=== PATIENT | male | born 1955 | race African-American/Black ===

== ENCOUNTER 2019-11-14 10:58 | Inpatient (IN) ==
[2019-11-14 13:30] LABS: Basophils % 0.1 % (0.0-0.8); Hemoglobin 14.5 GM/DL (14.0-18.0); Immature Granulocytes % 0.5 %; Immature Granulocytes Absolute 0.04 #; Lymphocytes # 0.7 10*3/uL (1.4-4.0); Lymphocytes % 9.7 % (21.2-54.2); Mean Corpuscular HGB Conc 32.2 GM/DL (32-36); Mean Corpuscular Volume 89.3 FL (87-102); Monocytes % 4.4 % (1.7-12.7); Neutrophils % 85.3 % (38.7-73.9); Platelet Count 181 T/CUMM (130-400); Red Blood Count 5.04 MC/CUMM (3.8-5.5); Red Cell Distribution Width 15.5 % (9.3-17.3); White Blood Count 7.7 T/CUMM (4-12)
[2019-11-14 13:45] LABS: Calcium 8.5 MG/DL (8.5-10.1); Osmolality,Calculated 298.1 MOS/KG (273-304)
[2019-11-14] MEDS ORDERED: ALPRAZolam 0.25 MG TABLET PO ONE (14:10)
[2019-11-14 14:25] LABS: Ferritin 494.8 ng/ml (26-388)
[2019-11-14] MEDS ORDERED: SODIUM CHLORIDE 0.9% 1,000 ML IV ONE (15:14)
[2019-11-14] MEDS ORDERED: ALBUTEROL 2.5 MG/3 ML NEB RESP TX PRN (15:19)
[2019-11-14] MEDS ORDERED: LEVOFLOXACIN INJ 500 MG in PREMIX 1 EACH IV ONE (15:30)
[2019-11-14] MEDS: ASPIRIN EC 81 MG TABLET PO SCH (15:49)
[2019-11-14] MEDS: INSULIN LISPRO 100 UNIT/ML SUBCUT SCH ×2 (15:49→21:15)
[2019-11-14] MEDS: amLODIPine 10 MG TABLET PO SCH (15:49)
[2019-11-14] MEDS: DEXAMETHASONE 4 MG/1 ML VIAL IV SCH ×2 (15:53→21:20)
[2019-11-14] MEDS: cefTRIAXone 1,000 MG in SYRINGE 1 EACH IV SCH (15:54)
[2019-11-14] MEDS ORDERED: NIFEdipine 10 MG CAPSULE PO PRN (16:22)
[2019-11-14] MEDS: SODIUM CHLORIDE 0.9% 1,000 ML IV SCH (17:00)
[2019-11-14 17:44] LABS: Amorphous Crystals,Urine Occasional /HPF (Few); Apearance,Urine Slightly Hazy (Clear); Bilirubin,Urine Negative (Negative); Blood, Urine Large mg/dL (Negative); Glucose,Urine (UA) Negative (Negative); Hyaline Casts,Urine 1 /LPF (0-3); Ketones,Urine 5 mg/dL (Negative); Mucus,Urine Occasional /LPF (Occasional); Nitrite,Urine Negative (Negative); Protein,Urine 100 MG/DL; RBC,Urine 1 /HPF (0-4); Squamous Epithelial Cell,Urine Occasional /HPF (0-10); Urine Color Yellow (Yellow); Urine Specific Gravity 1.012 (1.001-1.035); Urine Urobilinogen < 2.0 EU/DL (0.2-1.0)
[2019-11-14] MEDS: HEPARIN DRIP 25,000 UNITS/500 ML PREMIX IV SCH (18:35)
[2019-11-14] MEDS ORDERED: ACETAMINOPHEN 325 MG TABLET PO PRN (20:02)
[2019-11-14] MEDS: carvediloL 25 MG TABLET PO SCH (21:15)
[2019-11-14 23:10] LABS: ABG Base Excess -4.7 MMOL/L (-2.5-2.5); ABG HCO3 20.2 MMOL/L (20-26); ABG Oxygen Saturation 79.9 % (95-100); ABG PCO2 26.7 MM HG (35-48); ABG PH 7.436 (7.35-7.45); ABG PO2 48.7 MM HG (80-95); ABG TCO2 15.6 MMOL/L (23-27); Allen Test Positive; Pt O2 Delivery Device Other
[2019-11-15] MEDS: DEXAMETHASONE 4 MG/1 ML VIAL IV SCH ×4 (03:00→20:39)
[2019-11-15 03:29] LABS: Allen Test Positive; Pt O2 Delivery Device Other
[2019-11-15 03:30] LABS: ABG Base Excess -4.7 MMOL/L (-2.5-2.5); ABG HCO3 17.4 MMOL/L (20-26); ABG PCO2 25.2 MM HG (35-48); ABG PH 7.458 (7.35-7.45); ABG TCO2 18.2 MMOL/L (23-27)
[2019-11-15 04:06] LABS: Basophils % 0.1 % (0.0-0.8); Hematocrit 40.8 VOL% (42.0-52.0); Hemoglobin 13.3 GM/DL (14.0-18.0); Immature Granulocytes % 0.6 %; Immature Granulocytes Absolute 0.05 #; Lymphocytes % 12.1 % (21.2-54.2); Mean Corpuscular HGB Conc 32.6 GM/DL (32-36); Mean Corpuscular Volume 89.1 FL (87-102); Mean Platelet Volume 11.9 FL (9.6-12.0); Monocytes % 5.9 % (1.7-12.7); Neutrophils % 81.3 % (38.7-73.9); Platelet Count 180 T/CUMM (130-400); Red Blood Count 4.58 MC/CUMM (3.8-5.5); Red Cell Distribution Width 15.2 % (9.3-17.3); White Blood Count 8.2 T/CUMM (4-12)
[2019-11-15 04:15] LABS: Calcium 8.2 MG/DL (8.5-10.1); Osmolality,Calculated 298.1 MOS/KG (273-304)
[2019-11-15] MEDS: SODIUM CHLORIDE 0.9% 1,000 ML IV SCH ×3 (04:40→21:25)
[2019-11-15] MEDS: INSULIN LISPRO 100 UNIT/ML SUBCUT SCH ×4 (07:56→20:38)
[2019-11-15] MEDS: SIMVASTATIN 40 MG TABLET PO SCH (08:00)
[2019-11-15] MEDS: PANTOPRAZOLE 40 MG VIAL IV SCH (08:00)
[2019-11-15] MEDS: carvediloL 25 MG TABLET PO SCH ×2 (08:00→20:38)
[2019-11-15] MEDS: ASPIRIN EC 81 MG TABLET PO SCH (08:00)
[2019-11-15] MEDS: amLODIPine 10 MG TABLET PO SCH (08:00)
[2019-11-15] MEDS: allopurinoL 300 MG TABLET PO SCH (08:00)
[2019-11-15] MEDS: ALBUTEROL INHALER 18 GM INH SCH ×2 (08:39→11:25)
[2019-11-15] MEDS ORDERED: FUROSEMIDE 40 MG/4 ML VIAL IV ONE (08:45)
[2019-11-15] MEDS: HEPARIN DRIP 25,000 UNITS/500 ML PREMIX IV SCH ×2 (10:45→16:43)
[2019-11-15] MEDS: LEVOFLOXACIN INJ 250 MG in PREMIX 1 EACH IV SCH (15:37)
[2019-11-15] MEDS: cefTRIAXone 1,000 MG in SYRINGE 1 EACH IV SCH (15:37)
[2019-11-15] MEDS: ALPRAZolam 0.25 MG TABLET PO PRN (20:39)
[2019-11-15] MEDS: GABAPENTIN 600 MG TABLET PO PRN (20:39)
[2019-11-15] MEDS ORDERED: INSULIN GLARGINE 100 UNIT/ML SUBCUT SCH (21:00)
[2019-11-16 04:17] LABS: Allen Test Positive; Pt O2 Delivery Device Other
[2019-11-16 04:20] LABS: Hematocrit 40.2 VOL% (42.0-52.0); Hemoglobin 13.5 GM/DL (14.0-18.0); Immature Granulocytes % 0.7 %; Immature Granulocytes Absolute 0.09 #; Lymphocytes # 0.8 10*3/uL (1.4-4.0); Lymphocytes % 6.5 % (21.2-54.2); Mean Corpuscular HGB Conc 33.6 GM/DL (32-36); Mean Corpuscular Volume 87.4 FL (87-102); Mean Platelet Volume 11.8 FL (9.6-12.0); Monocytes % 4.4 % (1.7-12.7); NRBC # 0.03 10*3/uL; Neutrophils % 88.4 % (38.7-73.9); Platelet Count 185 T/CUMM (130-400); Red Cell Distribution Width 15.2 % (9.3-17.3); White Blood Count 12.5 T/CUMM (4-12)
[2019-11-16 04:23] LABS: ABG Base Excess -5.1 MMOL/L (-2.5-2.5); ABG HCO3 17.6 MMOL/L (20-26); ABG Oxygen Saturation 88.9 % (95-100); ABG PH 7.433 (7.35-7.45); ABG PO2 59.8 MM HG (80-95); ABG TCO2 18.5 MMOL/L (23-27)
[2019-11-16] MEDS: HEPARIN DRIP 25,000 UNITS/500 ML PREMIX IV SCH (04:44)
[2019-11-16] MEDS: DEXAMETHASONE 4 MG/1 ML VIAL IV SCH ×2 (04:44→12:45)
[2019-11-16 04:49] LABS: Hypochromasia 1+
[2019-11-16 04:50] LABS: Anisocytosis 1+; Burr Cells Slight
[2019-11-16 04:51] LABS: Platelet Estimate Adequate; Polychromasia Slight
[2019-11-16 04:55] LABS: Calcium 8.2 MG/DL (8.5-10.1); Osmolality,Calculated 303.2 MOS/KG (273-304)
[2019-11-16] MEDS ORDERED: PHENOL 1.4% THROAT SPRAY 177 ML BOTTLE PO PRN (07:46)
[2019-11-16] MEDS: SODIUM CHLORIDE 0.9% 1,000 ML IV SCH ×2 (08:12→17:25)
[2019-11-16] MEDS: ALBUTEROL INHALER 18 GM INH SCH ×3 (08:12→18:19)
[2019-11-16] MEDS: SIMVASTATIN 40 MG TABLET PO SCH (09:35)
[2019-11-16] MEDS: INSULIN LISPRO 100 UNIT/ML SUBCUT SCH ×4 (09:35→20:41)
[2019-11-16] MEDS: carvediloL 25 MG TABLET PO SCH ×2 (09:35→20:41)
[2019-11-16] MEDS: allopurinoL 300 MG TABLET PO SCH (09:35)
[2019-11-16] MEDS: PANTOPRAZOLE 40 MG VIAL IV SCH (09:35)
[2019-11-16] MEDS: ASPIRIN EC 81 MG TABLET PO SCH (09:35)
[2019-11-16] MEDS: amLODIPine 10 MG TABLET PO SCH (09:35)
[2019-11-16] MEDS ORDERED: INSULIN GLARGINE 100 UNIT/ML SUBCUT ONE (11:37)
[2019-11-16] MEDS: cefTRIAXone 1,000 MG in SYRINGE 1 EACH IV SCH (16:50)
[2019-11-16] MEDS: ENOXAPARIN 80 MG/0.8 ML SYRINGE SUBCUT SCH (16:50)
[2019-11-16] MEDS: LEVOFLOXACIN INJ 250 MG in PREMIX 1 EACH IV SCH (18:15)
[2019-11-16] MEDS: INSULIN GLARGINE 100 UNIT/ML SUBCUT SCH (20:41)
[2019-11-16] MEDS: GABAPENTIN 600 MG TABLET PO PRN (20:42)
[2019-11-16] MEDS: ALPRAZolam 0.25 MG TABLET PO PRN (20:42)
[2019-11-17] MEDS: ALBUTEROL INHALER 18 GM INH SCH ×4 (00:06→20:18)
[2019-11-17 05:00] LABS: Allen Test Positive; Pt O2 Delivery Device Other
[2019-11-17 05:01] LABS: ABG Base Excess -3.8 MMOL/L (-2.5-2.5); ABG HCO3 18.5 MMOL/L (20-26); ABG Oxygen Saturation 82.2 % (95-100); ABG PCO2 26.5 MM HG (35-48); ABG PH 7.461 (7.35-7.45); ABG TCO2 19.3 MMOL/L (23-27)
[2019-11-17 05:27] LABS: Basophils % 0.2 % (0.0-0.8); Hematocrit 38.3 VOL% (42.0-52.0); Hemoglobin 12.9 GM/DL (14.0-18.0); Immature Granulocytes % 1.9 %; Immature Granulocytes Absolute 0.24 #; Mean Corpuscular HGB Conc 33.7 GM/DL (32-36); Mean Corpuscular Volume 85.9 FL (87-102); Mean Platelet Volume 11.7 FL (9.6-12.0); Monocytes % 5.5 % (1.7-12.7); NRBC # 0.09 10*3/uL; Neutrophils % 84.4 % (38.7-73.9); Platelet Count 175 T/CUMM (130-400); Red Blood Count 4.46 MC/CUMM (3.8-5.5); Red Cell Distribution Width 15.1 % (9.3-17.3)
[2019-11-17 05:34] LABS: Osmolality,Calculated 299.8 MOS/KG (273-304)
[2019-11-17] MEDS: SODIUM CHLORIDE 0.9% 1,000 ML IV SCH ×2 (05:38→18:11)
[2019-11-17 05:52] LABS: Burr Cells Slight; Hypochromasia Slight; Lymphocytes 10 % (20-55); Ovalocytes Slight; Platelet Estimate Adequate; Segmented Neutrophils 84 % (50-85); Total Cells Counted 100
[2019-11-17] MEDS ORDERED: SODIUM CHLORIDE 0.9% 1,000 ML IV PRN (07:33)
[2019-11-17] MEDS: ENOXAPARIN 80 MG/0.8 ML SYRINGE SUBCUT SCH ×2 (08:40→20:21)
[2019-11-17] MEDS: carvediloL 25 MG TABLET PO SCH ×2 (08:40→20:18)
[2019-11-17] MEDS: SIMVASTATIN 40 MG TABLET PO SCH (08:40)
[2019-11-17] MEDS: ASPIRIN EC 81 MG TABLET PO SCH (08:40)
[2019-11-17] MEDS: amLODIPine 10 MG TABLET PO SCH (08:40)
[2019-11-17] MEDS: allopurinoL 300 MG TABLET PO SCH (08:40)
[2019-11-17] MEDS: DEXAMETHASONE 4 MG/1 ML VIAL IV SCH (08:40)
[2019-11-17] MEDS: INSULIN LISPRO 100 UNIT/ML SUBCUT SCH ×4 (09:55→20:18)
[2019-11-17] MEDS: PANTOPRAZOLE 40 MG VIAL IV SCH (10:48)
[2019-11-17] MEDS: cefTRIAXone 1,000 MG in SYRINGE 1 EACH IV SCH (16:50)
[2019-11-17] MEDS: INSULIN GLARGINE 100 UNIT/ML SUBCUT SCH (20:19)
[2019-11-17] MEDS: ALPRAZolam 0.25 MG TABLET PO PRN (20:33)
[2019-11-17] MEDS: GABAPENTIN 600 MG TABLET PO PRN (20:33)
[2019-11-18] MEDS: ALBUTEROL INHALER 18 GM INH SCH ×4 (01:30→16:36)
[2019-11-18 04:49] LABS: ABG Base Excess -4.4 MMOL/L (-2.5-2.5); ABG HCO3 17.6 MMOL/L (20-26); ABG Oxygen Saturation 87.6 % (95-100); ABG PCO2 25.2 MM HG (35-48); ABG PH 7.463 (7.35-7.45); ABG PO2 55.6 MM HG (80-95); ABG TCO2 18.4 MMOL/L (23-27); Allen Test Positive; Pt O2 Delivery Device Other
[2019-11-18 05:06] LABS: Basophils % 0.2 % (0.0-0.8); Hematocrit 38.8 VOL% (42.0-52.0); Immature Granulocytes Absolute 0.34 #; Lymphocytes # 0.9 10*3/uL (1.4-4.0); Lymphocytes % 7.8 % (21.2-54.2); Mean Corpuscular HGB Conc 33.5 GM/DL (32-36); Mean Platelet Volume 12.1 FL (9.6-12.0); Monocytes % 4.9 % (1.7-12.7); NRBC # 0.14 10*3/uL; Neutrophils % 84.1 % (38.7-73.9); Platelet Count 192 T/CUMM (130-400); Red Blood Count 4.51 MC/CUMM (3.8-5.5); Red Cell Distribution Width 15.2 % (9.3-17.3); White Blood Count 11.4 T/CUMM (4-12)
[2019-11-18 05:20] LABS: Calcium 8.3 MG/DL (8.5-10.1)
[2019-11-18 05:36] LABS: Lymphocytes 11 % (20-55); Nucleated Red Blood Cells 3 (0-5); Segmented Neutrophils 83 % (50-85); Total Cells Counted 100
[2019-11-18 05:37] LABS: Hypochromasia 1+; Microcytosis Slight; Polychromasia Slight; Target Cells Slight
[2019-11-18 05:38] LABS: Platelet Estimate Adequate
[2019-11-18] MEDS: DEXAMETHASONE 4 MG/1 ML VIAL IV SCH (09:25)
[2019-11-18] MEDS: ASPIRIN EC 81 MG TABLET PO SCH (09:26)
[2019-11-18] MEDS: carvediloL 25 MG TABLET PO SCH ×2 (09:26→22:20)
[2019-11-18] MEDS: amLODIPine 10 MG TABLET PO SCH (09:27)
[2019-11-18] MEDS: ENOXAPARIN 80 MG/0.8 ML SYRINGE SUBCUT SCH ×2 (09:27→22:21)
[2019-11-18] MEDS: SIMVASTATIN 40 MG TABLET PO SCH (09:28)
[2019-11-18] MEDS: PANTOPRAZOLE 40 MG VIAL IV SCH (09:28)
[2019-11-18] MEDS: allopurinoL 300 MG TABLET PO SCH (09:29)
[2019-11-18] MEDS: INSULIN LISPRO 100 UNIT/ML SUBCUT SCH ×4 (09:40→22:21)
[2019-11-18] MEDS: SODIUM CHLORIDE 0.9% 1,000 ML IV SCH ×2 (12:20)
[2019-11-18] MEDS: cefTRIAXone 1,000 MG in SYRINGE 1 EACH IV SCH (17:52)
[2019-11-18] MEDS ORDERED: ETOMIDATE 20 MG/10 ML VIAL IV ONE (19:34)
[2019-11-18] MEDS ORDERED: SUCCINYLCHOLINE 200 MG/10 ML VIAL ONE (19:35)
[2019-11-18 21:18] LABS: ABG Base Excess -6.2 MMOL/L (-2.5-2.5); ABG HCO3 19.1 MMOL/L (20-26); ABG Oxygen Saturation 78.5 % (95-100); ABG PCO2 37.7 MM HG (35-48); ABG PO2 52.1 MM HG (80-95); ABG TCO2 17.2 MMOL/L (23-27)
[2019-11-18] MEDS: INSULIN GLARGINE 100 UNIT/ML SUBCUT SCH (22:20)
[2019-11-19] MEDS: ALBUTEROL INHALER 18 GM INH SCH ×4 (00:56→19:45)
[2019-11-19] MEDS: SODIUM CHLORIDE 0.9% 1,000 ML IV SCH ×3 (05:02→16:25)
[2019-11-19 05:05] LABS: Basophils % 0.2 % (0.0-0.8); Hematocrit 39.6 VOL% (42.0-52.0); Hemoglobin 12.8 GM/DL (14.0-18.0); Immature Granulocytes % 2.8 %; Immature Granulocytes Absolute 0.36 #; Lymphocytes # 0.6 10*3/uL (1.4-4.0); Lymphocytes % 4.7 % (21.2-54.2); Mean Corpuscular HGB Conc 32.3 GM/DL (32-36); Mean Platelet Volume 12.2 FL (9.6-12.0); Monocytes % 3.1 % (1.7-12.7); NRBC # 0.13 10*3/uL; Neutrophils % 89.2 % (38.7-73.9); Platelet Count 200 T/CUMM (130-400); Red Cell Distribution Width 15.5 % (9.3-17.3)
[2019-11-19 05:22] LABS: Calcium 8.2 MG/DL (8.5-10.1)
[2019-11-19 05:23] LABS: Band Neutrophils 1 % (0-10); Lymphocytes 4 % (20-55); Nucleated Red Blood Cells 4 (0-5); Platelet Estimate Adequate; Segmented Neutrophils 92 % (50-85); Total Cells Counted 100
[2019-11-19 05:24] LABS: Microcytosis Slight
[2019-11-19 05:50] LABS: Allen Test Positive; Pt O2 Delivery Device Ventilator
[2019-11-19 05:51] LABS: ABG Base Excess -5.3 MMOL/L (-2.5-2.5); ABG HCO3 19.9 MMOL/L (20-26); ABG Oxygen Saturation 87.9 % (95-100); ABG PCO2 35.7 MM HG (35-48); ABG PH 7.349 (7.35-7.45); ABG PO2 61.8 MM HG (80-95); ABG TCO2 17.4 MMOL/L (23-27)
[2019-11-19] MEDS: ENOXAPARIN 80 MG/0.8 ML SYRINGE SUBCUT SCH (08:36)
[2019-11-19] MEDS: PANTOPRAZOLE 40 MG VIAL IV SCH (08:36)
[2019-11-19] MEDS: amLODIPine 10 MG TABLET PO SCH (08:37)
[2019-11-19] MEDS: ASPIRIN EC 81 MG TABLET PO SCH (08:37)
[2019-11-19] MEDS: allopurinoL 300 MG TABLET PO SCH (08:37)
[2019-11-19] MEDS: DEXAMETHASONE 4 MG/1 ML VIAL IV SCH (08:37)
[2019-11-19] MEDS: carvediloL 25 MG TABLET PO SCH ×2 (08:38→21:23)
[2019-11-19] MEDS: INSULIN LISPRO 100 UNIT/ML SUBCUT SCH ×3 (08:38→17:26)
[2019-11-19] MEDS: SIMVASTATIN 40 MG TABLET PO SCH (08:38)
[2019-11-19] MEDS ORDERED: DEXTROSE 50% 25 GM/50 ML VIAL IV PRN (12:16)
[2019-11-19] MEDS ORDERED: GLUCAGON 1 MG VIAL IM PRN (12:16)
[2019-11-19] MEDS: INSULIN ASPART PROTAMINE/ASPART 70/30 100 UNIT/ML SUBCUT SCH ×2 (12:59→21:23)
[2019-11-19] MEDS: cefTRIAXone 1,000 MG in SYRINGE 1 EACH IV SCH (16:24)
[2019-11-19] MEDS: HEPARIN DRIP 25,000 UNITS/500 ML PREMIX IV SCH (21:00)
[2019-11-19] MEDS: INSULIN GLARGINE 100 UNIT/ML SUBCUT SCH (21:23)
[2019-11-20] MEDS: INSULIN LISPRO 100 UNIT/ML SUBCUT SCH ×4 (00:30→18:19)
[2019-11-20] MEDS: ALBUTEROL INHALER 18 GM INH SCH ×4 (01:23→18:20)
[2019-11-20 04:24] LABS: Basophils % 0.2 % (0.0-0.8); Eosinophils % 0.2 % (0.00-10.9); Hematocrit 38.8 VOL% (42.0-52.0); Hemoglobin 12.4 GM/DL (14.0-18.0); Immature Granulocytes Absolute 0.64 #; Lymphocytes # 0.4 10*3/uL (1.4-4.0); Lymphocytes % 3.3 % (21.2-54.2); Mean Corpuscular Volume 90.7 FL (87-102); Mean Platelet Volume 11.7 FL (9.6-12.0); Monocytes % 1.2 % (1.7-12.7); NRBC # 0.16 10*3/uL; Neutrophils % 90.1 % (38.7-73.9); Platelet Count 207 T/CUMM (130-400); Red Blood Count 4.28 MC/CUMM (3.8-5.5); Red Cell Distribution Width 15.9 % (9.3-17.3); White Blood Count 12.9 T/CUMM (4-12)
[2019-11-20 04:43] LABS: Band Neutrophils 1 % (0-10); Lymphocytes 5 % (20-55); Nucleated Red Blood Cells 6 (0-5); Platelet Estimate Adequate; Segmented Neutrophils 93 % (50-85); Total Cells Counted 100
[2019-11-20 04:44] LABS: Burr Cells Slight; Microcytosis Slight; Ovalocytes Slight
[2019-11-20 04:51] LABS: Calcium 8.1 MG/DL (8.5-10.1); Osmolality,Calculated 300.8 MOS/KG (273-304)
[2019-11-20 05:31] LABS: ABG Base Excess -6.2 MMOL/L (-2.5-2.5); ABG HCO3 18.2 MMOL/L (20-26); ABG PO2 68.2 MM HG (80-95); ABG TCO2 19.2 MMOL/L (23-27); Allen Test Positive; Pt O2 Delivery Device Ventilator
[2019-11-20] MEDS: amLODIPine 10 MG TABLET PO SCH (08:03)
[2019-11-20] MEDS: allopurinoL 300 MG TABLET PO SCH (08:03)
[2019-11-20] MEDS: carvediloL 25 MG TABLET PO SCH ×2 (08:03→20:32)
[2019-11-20] MEDS: SIMVASTATIN 40 MG TABLET PO SCH (08:03)
[2019-11-20] MEDS: ASPIRIN EC 81 MG TABLET PO SCH (08:03)
[2019-11-20] MEDS: PANTOPRAZOLE 40 MG VIAL IV SCH (08:04)
[2019-11-20] MEDS: DEXAMETHASONE 4 MG/1 ML VIAL IV SCH (08:04)
[2019-11-20] MEDS: INSULIN ASPART PROTAMINE/ASPART 70/30 100 UNIT/ML SUBCUT SCH ×2 (08:04→20:33)
[2019-11-20] MEDS: SODIUM CHLORIDE 0.9% 1,000 ML IV SCH (12:10)
[2019-11-20] MEDS: HEPARIN DRIP 25,000 UNITS/500 ML PREMIX IV SCH ×2 (13:42→20:35)
[2019-11-20] MEDS: INSULIN GLARGINE 100 UNIT/ML SUBCUT SCH (20:33)
[2019-11-21] MEDS ORDERED: VECURONIUM 10 MG VIAL IV ONE ×2 (00:29→00:36)
[2019-11-21] MEDS: INSULIN LISPRO 100 UNIT/ML SUBCUT SCH ×5 (01:11→18:42)
[2019-11-21] MEDS: ALBUTEROL INHALER 18 GM INH SCH ×4 (01:11→18:52)
[2019-11-21 04:52] LABS: ABG Base Excess -7.6 MMOL/L (-2.5-2.5); ABG HCO3 18.2 MMOL/L (20-26); ABG Oxygen Saturation 91.6 % (95-100); ABG PO2 75.5 MM HG (80-95); ABG TCO2 19.6 MMOL/L (23-27); Allen Test Positive; Pt O2 Delivery Device Ventilator
[2019-11-21] MEDS ORDERED: SODIUM BICARBONATE 50 MEQ/50 ML VIAL IV ONE ×2 (05:00→05:22)
[2019-11-21] MEDS ORDERED: SODIUM BICARB INJ 100 MEQ in STERILE WATER INJ 400 ML IV ONE (05:30)
[2019-11-21 06:02] LABS: Calcium 8.4 MG/DL (8.5-10.1); Osmolality,Calculated 309.7 MOS/KG (273-304)
[2019-11-21] MEDS: carvediloL 25 MG TABLET PO SCH ×2 (08:15→20:30)
[2019-11-21] MEDS: allopurinoL 300 MG TABLET PO SCH (08:15)
[2019-11-21] MEDS: ASPIRIN CHEW 81 MG TABLET PO SCH (08:16)
[2019-11-21] MEDS: amLODIPine 10 MG TABLET PO SCH (08:16)
[2019-11-21] MEDS: DEXAMETHASONE 4 MG/1 ML VIAL IV SCH (08:16)
[2019-11-21] MEDS: PANTOPRAZOLE 40 MG VIAL IV SCH (08:16)
[2019-11-21] MEDS: SIMVASTATIN 40 MG TABLET PO SCH (08:16)
[2019-11-21] MEDS: INSULIN ASPART PROTAMINE/ASPART 70/30 100 UNIT/ML SUBCUT SCH ×2 (08:17→20:30)
[2019-11-21 09:06] LABS: Basophils % 0.2 % (0.0-0.8); Eosinophils % 0.2 % (0.00-10.9); Hematocrit 38.2 VOL% (42.0-52.0); Hemoglobin 11.6 GM/DL (14.0-18.0); Immature Granulocytes % 5.2 %; Immature Granulocytes Absolute 0.61 #; Lymphocytes # 0.3 10*3/uL (1.4-4.0); Lymphocytes % 2.8 % (21.2-54.2); Mean Corpuscular HGB Conc 30.4 GM/DL (32-36); Mean Corpuscular Volume 94.1 FL (87-102); Mean Platelet Volume 12.8 FL (9.6-12.0); NRBC # 0.16 10*3/uL; Neutrophils % 89.6 % (38.7-73.9); Platelet Count 227 T/CUMM (130-400); Red Blood Count 4.06 MC/CUMM (3.8-5.5); Red Cell Distribution Width 16.5 % (9.3-17.3); White Blood Count 11.7 T/CUMM (4-12)
[2019-11-21] MEDS: HEPARIN DRIP 25,000 UNITS/500 ML PREMIX IV SCH ×2 (09:15→22:25)
[2019-11-21 11:28] LABS: Burr Cells Few; Hypochromasia 1+; Lymphocytes 4 % (20-55); Platelet Estimate Normal; Polychromasia Slight; Segmented Neutrophils 93 % (50-85); Target Cells Slight; Total Cells Counted 100
[2019-11-21] MEDS: SODIUM CHLORIDE 23.4% CONC INJ 38.5 MEQ, SODIUM BICARB INJ 50 MEQ in STERILE WATER INJ ... IV SCH (13:59)
[2019-11-21] MEDS ORDERED: SODIUM CHLORIDE 0.9% 500 ML IV ONE (14:36)
[2019-11-21] MEDS ORDERED: INSULIN GLARGINE 100 UNIT/ML SUBCUT SCH (15:10)
[2019-11-21] MEDS: FUROSEMIDE 40 MG/4 ML VIAL IV SCH (15:55)
[2019-11-21 18:14] LABS: ABG Base Excess -7.1 MMOL/L (-2.5-2.5); ABG HCO3 18.6 MMOL/L (20-26); ABG Oxygen Saturation 95.7 % (95-100); ABG PCO2 46.3 MM HG (35-48); ABG PH 7.249 (7.35-7.45); ABG PO2 89.7 MM HG (80-95); ABG TCO2 18.5 MMOL/L (23-27)
[2019-11-21] MEDS: PHENYLEPHRINE DRIP 40 MG/250 ML PREMIX IV PRN (22:18)
[2019-11-22] MEDS: INSULIN LISPRO 100 UNIT/ML SUBCUT SCH ×4 (01:33→18:04)
[2019-11-22] MEDS: ALBUTEROL INHALER 18 GM INH SCH ×2 (01:35→06:15)
[2019-11-22] MEDS: ROCURONIUM 500 MG in SODIUM CHLORIDE 0.9% 500 ML IV PRN ×2 (02:59→18:30)
[2019-11-22] MEDS: PHENYLEPHRINE DRIP 40 MG/250 ML PREMIX IV PRN ×9 (04:22→23:57)
[2019-11-22 04:50] LABS: ABG Base Excess -8.6 MMOL/L (-2.5-2.5); ABG HCO3 19.1 MMOL/L (20-26); ABG Oxygen Saturation 94.9 % (95-100); ABG PCO2 48.4 MM HG (35-48); ABG PH 7.213 (7.35-7.45); ABG PO2 84.6 MM HG (80-95); ABG TCO2 20.5 MMOL/L (23-27); Allen Test Positive; Pt O2 Delivery Device Ventilator
[2019-11-22 05:31] LABS: Basophils % 0.2 % (0.0-0.8); Eosinophils # 0.1 10*3/uL (0.0-0.87); Eosinophils % 0.8 % (0.00-10.9); Hemoglobin 10.8 GM/DL (14.0-18.0); Immature Granulocytes % 5.3 %; Immature Granulocytes Absolute 0.57 #; Lymphocytes # 0.3 10*3/uL (1.4-4.0); Lymphocytes % 2.7 % (21.2-54.2); Mean Corpuscular HGB Conc 31.8 GM/DL (32-36); Mean Corpuscular Volume 89.7 FL (87-102); Mean Platelet Volume 12.8 FL (9.6-12.0); Monocytes % 2.2 % (1.7-12.7); NRBC # 0.27 10*3/uL; Neutrophils % 88.8 % (38.7-73.9); Platelet Count 225 T/CUMM (130-400); Red Blood Count 3.79 MC/CUMM (3.8-5.5); Red Cell Distribution Width 16.5 % (9.3-17.3); White Blood Count 10.8 T/CUMM (4-12)
[2019-11-22 05:57] LABS: Calcium 8.1 MG/DL (8.5-10.1); Osmolality,Calculated 323.7 MOS/KG (273-304)
[2019-11-22] MEDS: FUROSEMIDE 40 MG/4 ML VIAL IV SCH (08:05)
[2019-11-22] MEDS: allopurinoL 300 MG TABLET PO SCH (08:05)
[2019-11-22] MEDS: ASPIRIN CHEW 81 MG TABLET PO SCH (08:06)
[2019-11-22] MEDS: SIMVASTATIN 40 MG TABLET PO SCH (08:06)
[2019-11-22] MEDS: PANTOPRAZOLE 40 MG VIAL IV SCH (08:06)
[2019-11-22] MEDS: carvediloL 25 MG TABLET PO SCH (08:06)
[2019-11-22] MEDS: DEXAMETHASONE 4 MG/1 ML VIAL IV SCH (08:06)
[2019-11-22] MEDS: INSULIN ASPART PROTAMINE/ASPART 70/30 100 UNIT/ML SUBCUT SCH ×2 (08:12→21:29)
[2019-11-22] MEDS: amLODIPine 10 MG TABLET PO SCH (08:22)
[2019-11-22 09:01] LABS: Lymphocytes 2 % (20-55); Segmented Neutrophils 94 % (50-85); Total Cells Counted 100
[2019-11-22 09:02] LABS: Hypochromasia 2+; Ovalocytes Slight; Platelet Estimate Normal; Schistocytes Slight
[2019-11-22] MEDS: SODIUM CHLORIDE 23.4% CONC INJ 38.5 MEQ, SODIUM BICARB INJ 100 MEQ in STERILE WATER INJ... IV SCH (10:38)
[2019-11-22] MEDS ORDERED: INSULIN GLARGINE 100 UNIT/ML SUBCUT SCH (10:39)
[2019-11-22] MEDS: SODIUM CHLORIDE 23.4% CONC INJ 38.5 MEQ, SODIUM BICARB INJ 50 MEQ in STERILE WATER INJ ... IV SCH (10:40)
[2019-11-22] MEDS ORDERED: NOREPINEPHRINE 4 MG/4 ML VIAL IV ONE (11:50)
[2019-11-22] MEDS: ALBUTEROL 2.5 MG/3 ML NEB RESP TX SCH ×5 (12:10→23:45)
[2019-11-22] MEDS ORDERED: SODIUM CHLORIDE 0.9% 500 ML IV ONE (13:54)
[2019-11-22] MEDS ORDERED: carvediloL 25 MG TABLET PO SCH (14:00)
[2019-11-22] MEDS: NOREPINEPHRINE 8 MG in SODIUM CHLORIDE 0.9% 242 ML IV PRN ×2 (14:06→22:47)
[2019-11-22] MEDS ORDERED: METOPROLOL TARTRATE 25 MG TABLET PO SCH (20:00)
[2019-11-22] MEDS: HEPARIN DRIP 25,000 UNITS/500 ML PREMIX IV SCH (21:29)
[2019-11-23] MEDS: INSULIN LISPRO 100 UNIT/ML SUBCUT SCH ×2 (00:15→05:36)
[2019-11-23] MEDS ORDERED: SODIUM CHLORIDE 0.9% 1,000 ML IV ONE (00:31)
[2019-11-23] MEDS: PHENYLEPHRINE DRIP 40 MG/250 ML PREMIX IV PRN ×4 (01:49→09:10)
[2019-11-23] MEDS: NOREPINEPHRINE 8 MG in SODIUM CHLORIDE 0.9% 242 ML IV PRN ×2 (02:07→05:58)
[2019-11-23 02:15] LABS: ABG Base Excess -11.5 MMOL/L (-2.5-2.5); ABG HCO3 15.1 MMOL/L (20-26); ABG Oxygen Saturation 72.2 % (95-100); ABG PCO2 59.1 MM HG (35-48); ABG PO2 46.8 MM HG (80-95); ABG TCO2 17.8 MMOL/L (23-27)
[2019-11-23] MEDS ORDERED: NOREPINEPHRINE 4 MG/4 ML VIAL IV ONE (02:15)
[2019-11-23 02:16] LABS: ABG PH 7.114 (7.35-7.45)
[2019-11-23] MEDS ORDERED: SODIUM BICARBONATE 50 MEQ/50 ML VIAL IV ONE ×3 (02:18→06:15)
[2019-11-23] MEDS: ALBUMIN 25% 25 GM in PREMIX 1 EACH IV SCH ×2 (02:27→08:53)
[2019-11-23] MEDS: HEPARIN DRIP 25,000 UNITS/500 ML PREMIX IV SCH (02:40)
[2019-11-23] MEDS: ALBUTEROL 2.5 MG/3 ML NEB RESP TX SCH ×2 (03:16→07:45)
[2019-11-23 04:23] LABS: Basophils % 0.1 % (0.0-0.8); Eosinophils % 0.2 % (0.00-10.9); Hematocrit 33.5 VOL% (42.0-52.0); Hemoglobin 10.4 GM/DL (14.0-18.0); Immature Granulocytes % 5.1 %; Immature Granulocytes Absolute 0.59 #; Lymphocytes # 0.3 10*3/uL (1.4-4.0); Lymphocytes % 2.8 % (21.2-54.2); Mean Platelet Volume 12.3 FL (9.6-12.0); Monocytes % 2.3 % (1.7-12.7); NRBC # 0.17 10*3/uL; Neutrophils % 89.5 % (38.7-73.9); Platelet Count 236 T/CUMM (130-400); Red Blood Count 3.64 MC/CUMM (3.8-5.5); White Blood Count 11.5 T/CUMM (4-12)
[2019-11-23 04:58] LABS: Eosinophils 1 % (0-10); Hypochromasia 1+; Lymphocytes 3 % (20-55); Ovalocytes Slight; Platelet Estimate Adequate; Segmented Neutrophils 93 % (50-85); Total Cells Counted 100
[2019-11-23 04:58] LABS: ABG Base Excess -10.1 MMOL/L (-2.5-2.5); ABG HCO3 16.2 MMOL/L (20-26); ABG PCO2 66.8 MM HG (35-48); ABG PO2 61.4 MM HG (80-95); ABG TCO2 19.7 MMOL/L (23-27); Allen Test Positive; Pt O2 Delivery Device Ventilator
[2019-11-23 05:05] LABS: ABG PH 7.103 (7.35-7.45)
[2019-11-23 05:07] LABS: Calcium 7.1 MG/DL (8.5-10.1); Osmolality,Calculated 327.8 MOS/KG (273-304)
[2019-11-23] MEDS ORDERED: ALBUMIN 25% 25 GM in PREMIX 1 EACH IV SCH (06:00)
[2019-11-23] MEDS ORDERED: SODIUM POLYSTYRENE SULFATE 15 GM/60 ML BOTTLE PO ONE (06:14)
[2019-11-23] MEDS ORDERED: NOREPINEPHRINE 16 MG in SODIUM CHLORIDE 0.9% 234 ML IV PRN (07:59)
[2019-11-23] MEDS ORDERED: PHENYLEPHRINE INJ 160 MG in SODIUM CHLORIDE 0.9% 234 ML IV PRN (07:59)
[2019-11-23] MEDS ORDERED: ROCURONIUM 1,000 MG in SODIUM CHLORIDE 0.9% 175 ML IV PRN (07:59)
[2019-11-23] MEDS: allopurinoL 300 MG TABLET PO SCH (08:56)
[2019-11-23] MEDS: SIMVASTATIN 40 MG TABLET PO SCH (08:56)
[2019-11-23] MEDS: ASPIRIN CHEW 81 MG TABLET PO SCH (08:56)
[2019-11-23] MEDS: DEXAMETHASONE 4 MG/1 ML VIAL IV SCH (08:56)
[2019-11-23] MEDS ORDERED: cefTAZidime 1,000 MG in SYRINGE 1 EACH IV SCH (09:00)
[2019-11-23] MEDS: PANTOPRAZOLE 40 MG VIAL IV SCH (09:07)
[2019-11-23] MEDS: INSULIN ASPART PROTAMINE/ASPART 70/30 100 UNIT/ML SUBCUT SCH (10:33)
[2019-11-23] MEDS: SODIUM CHLORIDE 23.4% CONC INJ 38.5 MEQ, SODIUM BICARB INJ 100 MEQ in STERILE WATER INJ... IV SCH (10:35)
[2019-11-23 11:14] VITALS: BP 91/44
== END 2019-11-23 09:15 | disposition expired | DRG 870 ==
LOC: SUATTDRO 13:06 → N.CC 13:06
PROVIDERS: ADMIT Internal Medicine; ATTEND Internal Medicine